=== PATIENT | female | born 1940 | race Caucasian/White ===

== ENCOUNTER 2020-03-14 10:53 | Emergency (ER) | payer MEDICARE, BC ==
[~2020-03-14] VITALS: Ht 175.3 cm; Wt 63.4 kg
[~2020-03-14 10:53] MED LIST: DICL100G15 TOP; DIPH25CA83 PO
[2020-03-14 10:54] VITALS: BP 177/72
== END 2020-03-14 12:10 | disposition home or self-care (01) ==
LOC: ER 10:54
DX: H61.891 Other specified disorders of right external ear (principal); M54.81 Occipital neuralgia; Z98.890 Other specified postprocedural states; Z79.899 Other long term (current) drug therapy
CPT/HCPCS: 99281

== ENCOUNTER 2023-02-01 08:51 | Outpatient (CLI) | payer MEDICARE, BC | END 2023-02-01 23:59 | disposition home or self-care (01) | LOC: CARD DIAG 08:51 | PROVIDERS: ATTEND Internal Medicine Cardiovascular Disease | DX: I08.1 Rheumatic disorders of both mitral and tricuspid valves (principal) | CPT/HCPCS: 93306 ==

== ENCOUNTER 2023-12-07 22:47 | Emergency (ER) | payer MEDICARE, BC ==
[~2023-12-07] VITALS: Ht 175.3 cm; Wt 64.0 kg
[2023-12-07 23:01] VITALS: BP 145/78; PULSE 71; RESP 16; TEMP 98.1; O2SAT 99
== END 2023-12-08 01:13 | disposition home or self-care (01) ==
LOC: ER 22:48
DX: S00.83XA Contusion of other part of head, initial encounter (principal); Z79.899 Other long term (current) drug therapy; X58.XXXA Exposure to other specified factors, initial encounter; Y93.89 Activity, other specified; Y92.89 Other specified places as the place of occurrence of the external cause; Y99.8 Other external cause status
CPT/HCPCS: 99281

== ENCOUNTER 2023-12-23 18:13 | Emergency (ER) | payer MEDICARE, BC ==
[~2023-12-23] VITALS: Ht 175.3 cm; Wt 62.3 kg
[2023-12-23 20:21] VITALS: BP 130/66; PULSE 71; RESP 16; TEMP 98.3; O2SAT 98
== END 2023-12-23 20:23 | disposition home or self-care (01) ==
LOC: ER 18:13
DX: M25.532 Pain in left wrist (principal); Z79.1 Long term (current) use of non-steroidal anti-inflammatories (NSAID); Z79.899 Other long term (current) drug therapy
CPT/HCPCS: 73110; 99284

== ENCOUNTER 2024-06-12 00:44 | Emergency (ER) | payer MEDICARE, BC ==
[~2024-06-12] VITALS: Ht 175.3 cm; Wt 62.3 kg
[2024-06-12 00:49] VITALS: BP 137/56; PULSE 64; RESP 17; TEMP 98.1; O2SAT 97
[2024-06-12] MEDS ORDERED: CEPH-585 PO (02:28)
[2024-06-12] MEDS: cephalexin 250mg capsule PO ONE (02:31)
[2024-06-12] MEDS: triamcinolone acetonide 40mg/ml inj IM ONE (02:31)
[2024-06-12] MEDS: TETanus/Pertussis (Acell)/Diphther VAC/PF (Tdap-Adult) 0.5ml syringe IMVAC ONE (02:33)
== END 2024-06-12 02:43 | disposition home or self-care (01) ==
LOC: ER 00:45
DX: L03.114 Cellulitis of left upper limb (principal); L03.113 Cellulitis of right upper limb; T63.461A Toxic effect of venom of wasps, accidental (unintentional), initial encounter; E07.9 Disorder of thyroid, unspecified; M79.89 Other specified soft tissue disorders; Z79.899 Other long term (current) drug therapy; Z98.890 Other specified postprocedural states; Y92.89 Other specified places as the place of occurrence of the external cause
CPT/HCPCS: 90715; 96372; 99284; G0008; J3301; 90471

== ENCOUNTER 2024-11-01 13:46 | Emergency (ER) | payer MEDICARE, BC ==
[~2024-11-01] VITALS: Ht 175.3 cm; Wt 65.5 kg
[2024-11-01 13:52] VITALS: PULSE 74; TEMP 98.4; O2SAT 96
[2024-11-01 15:51] VITALS: RESP 16
== END 2024-11-01 15:52 | disposition home or self-care (01) ==
LOC: ER 13:47
DX: J06.9 Acute upper respiratory infection, unspecified (principal); Z98.890 Other specified postprocedural states
CPT/HCPCS: 99282